=== PATIENT | female | born 1955 | race Caucasian/White ===

== ENCOUNTER 2017-04-27 15:48 | Outpatient (CLI) | payer OTHER ==
[~2017-04-27] VITALS: Ht 142.2 cm; Wt 45.0 kg
[2017-04-27 15:29] VITALS: BP 115/64; PULSE 105; RESP 18; Ht 142.2 cm; Wt 45.0 kg
[2017-04-27] MEDS ORDERED: SELE5TAB2 PO (15:51)
[2017-04-27] MEDS ORDERED: ENTA200T16 PO (15:51)
[2017-04-27] MEDS ORDERED: SIN50200 PO (15:51)
[2017-04-27] MEDS ORDERED: ROPI2TAB PO (15:51)
--- NOTE | 2017-04-27 16:03 | PN ---
Date/Time of Note Date/Time of Note DATE: 04/27/17 TIME: 15:56 Outpatient Progress Note Chief Complaint Sepsis/Parkinson/diabetes/hypertension/electrolyte imbalance HPI Sepsis/patient had sepsis, patient was recently hospitalized, patient was discharged on antibiotic, patient continued to have temperature up to 102+, patient was after the discharge was seen already in the hospital emergency room , patient had a CBC CMP, normal, Parkinson/patient has Parkinson disease, patient on medication, patient has more tremors when patient gets nervous, Diabetes no polydipsia polyuria hypoglycemia, blood sugar slightly elevated, Hypertension no headache or dizziness, no lightheadedness, no local focal weakness, Electrolyte imbalance patient has electrolyte been imbalance, patient was treated in the hospital, feeling better, no cramps, Review of Systems Const: Patient has fever, right now temperature 99.2, patient has temperature up to 102+, no chills, no Wt. loss, generalized fatigue, slightly poor appetite , no diaphoresis. Eyes: No pain, no discharge, no redness, no visual change, no foreign body. ENT: No pain, no bleeding, no congestion, no sore throat, no dysphagia, no discharge or rhinitis. Lymph: No adenopathy, no tender nodes, no lymphedema. Resp: No SOB, no cough, no sputum, no wheezing, no chest pain. CV: No chest pain, no palpitaions, no RIOS, no PND, no edema. GI: Normal appetite, no pain, no nausea, no vomiting, no diarrhea, no blood, no constipation. : No frequency, no urgency, no dysuria, no hematuria, no flank pain, no discharge, no bleeding. Musc: no back pain, no neck pain, no knee pain, no restricted ROM. Skin: No rash, no skin lesions, no erythema, no laceration, no bruising, no pruritus. Neuro: No JOHNSON, no dizziness, no syncope, no seizure, no focal-weakness. Feel generalized weakness, Endo: No polyuria, no polydypsia, no dry-skin, no temp-intolerance. Psych: No hallucinations, no depression, no anxiety, no suicidal ideation. Ext: No edema, no pain, no ulcer, no weakness. Physical Exam Vital Signs Date Time Temp Pulse Resp B/P Pulse Ox O2 Delivery O2 Flow Rate FiO2 04/27/17 15:29 99.3 105 18 115/64 100 Room Air General Appearance: A 62 year-old female who appears well-developed, well- nourished, in no acute distress. HEENT: Head normocephalic, atraumatic. Pupils equal, round, reactive to light and accommodate. Sclerae are no jaundice. Nasal turbinates pink without erythema or nasal discharge. Mucous membranes pink and moist without lesions. Oropharynx clear without any exudate or discharge. NECK: Supple. Trachea midline, No thyromegaly, No cervical lymphadenopathy, No mass, No carotid bruits, No JVD, Carotid pulses 2+ bilaterally. PULMONARY: Clear to auscultaion bilaterally, No retractions, Chest expansion symmetric bilaterally, no rales, no ronchi, no dulness on percussion. CARDIAC: Normal SI and S2, Regular rate and rythm, no murmur, gallop, or rub. GASTROINTESTINAL: Abdomen is soft, non-tender, Non Rigid, No distention, Positive bowel sounds x4 quadrants, Liver normal. SKIN: Warm, dry, no rash, no bruise, no echmosis. EXTREMITIES: Bilateral lower extremities normal, no edema, no phlabitus, pulse palpable, no contracture. MUSCULOSKELETAL: Spine Normal, Non-tender, Normal range of motion, No swelling, no deformity, no clubbing, or cyanosis, the patient has no edema to bilateral lower extremities, dorsalis pedis pulses palpable bilaterally. NEUROLOGIC: The patient is awake, alert, oriented, responding to yes/no questions appropriately, moving all extremities, cranial nerve intact, reduced strenght, and power, and coordination, unsteady patient gait needs maximum help, . PMH Sepsis/Parkinson/diabetes/hypertension/hyponatremia/gastroenteritis/hyperkalemia /renal insufficiency/ Social Hx No smoking no drinking, Family Hx Noncontributory Assessment/Plan Impression Sepsis/Parkinson/diabetes/hypertension/electrolyte imbalance Plan Patient has been admitted to the hospital with a sepsis, patient on antibiotic, patient still has antibiotic till tomorrow, patient still has a fever up to 102+ , and patient was already seen in emergency room after the discharge from the hospital, Patient encouraged to follow with the primary care physician, Patient CBC CMP from the hospital noted, Patient has generalized deconditioning, patient unable to stand by herself alone , needs maximum help, discussed with the family to increase activity slowly, fall precaution, We will ask if we can extend physical therapy and nursing visit with more, Patient very very high risk for repeated admission, patient also high risk for sepsis and sudden , Patient high risk for fall, I will see her within 1 week, patient family advised if they feel uncomfortable take her to the emergency room, Patient more likely will end up in the ER sooner than later, will monitor closely, will do lab next week, Medications Home Meds Reported Medications Selegiline Hcl* (Selegiline Hcl*) 5 Mg Tablet, 5 MG PO WITH BREAKFAST LUNCH, TAB 04/27/17 Ropinirole Hcl* (Requip XL*) 2 Mg Tab.sr.24h, 2 MG PO DAILY, TAB 04/27/17 Entacapone* (Comtan*) 200 Mg Tab, 200 MG PO QID, TAB 04/27/17 Carbidopa-Levodopa* (Sinemet CR*) 50-200 Mg Tabsr, 1 TAB PO QID, TAB 04/27/17 RAJ YOUNG MD Apr 27, 2017 16:03
== END 2017-04-27 16:22 | disposition home or self-care (01) ==
LOC: DCC 15:48
PROVIDERS: ATTEND Internal Medicine
DX: G20 Parkinson's disease (principal); I10 Essential (primary) hypertension; E87.5 Hyperkalemia; A41.9 Sepsis, unspecified organism; N28.9 Disorder of kidney and ureter, unspecified

== ENCOUNTER 2017-05-04 14:39 | Outpatient (CLI) | payer OTHER ==
[~2017-05-04] VITALS: Ht 142.2 cm; Wt 44.5 kg
[~2017-05-04 14:39] MED LIST: ENTA200T16 PO; ROPI2TAB PO; SELE5TAB2 PO; SIN50200 PO
[2017-05-04 14:46] VITALS: BP 106/60; PULSE 98; RESP 18; Ht 142.2 cm; Wt 44.5 kg
--- NOTE | 2017-05-04 15:46 | PN ---
Date/Time of Note Date/Time of Note DATE: 05/04/17 TIME: 15:41 Outpatient Progress Note Chief Complaint Sepsis/diabetes/hypertension/Parkinson HPI Sepsis/this patient was recently admitted with a sepsis,Patient with complete workup including LP, no source of infection, patient just completed antibiotic, Patient still has low-grade fever, no chills, patient still very weak and unsteady, Diabetes/patient denies any polydipsia polyuria hypoglycemia, Hypertension patient denies any headache or dizziness, patient feel generalized weakness and tiredness, Parkinson/no dysphagia, patient has tremors, no change in status, Review of Systems Const: Low-grade fever, no chills, no Wt. loss, generalized fatigue, normal appetite, no diaphoresis. Eyes: No pain, no discharge, no redness, no visual change, no foreign body. ENT: No pain, no bleeding, no congestion, no sore throat, no dysphagia, no discharge or rhinitis. Lymph: No adenopathy, no tender nodes, no lymphedema. Resp: No SOB, no cough, no sputum, no wheezing, no chest pain. CV: No chest pain, no palpitaions, no RIOS, no PND, no edema. GI: Normal appetite, no pain, no nausea, no vomiting, no diarrhea, no blood, no constipation. : No frequency, no urgency, no dysuria, no hematuria, no flank pain, no discharge, no bleeding. Musc: No bone/joint pain, no back pain, no neck pain, no knee pain, no restricted ROM. Skin: No rash, no skin lesions, no erythema, no laceration, no bruising, no pruritus. Neuro: No JOHNSON, no dizziness, no syncope, no seizure, no focal-weakness. Endo: No polyuria, no polydypsia, no dry-skin, no temp-intolerance. Psych: No hallucinations, no depression, no anxiety, no suicidal ideation. Ext: No edema, no pain, no ulcer, generalized no weakness. And unsteady gait, daughter has to hold onto her, Physical Exam Vital Signs Date Time Temp Pulse Resp B/P Pulse Ox O2 Delivery O2 Flow Rate FiO2 05/04/17 14:46 98.3 98 18 106/60 100 Room Air General Appearance: A 62 year-old female who appears well-developed, well- nourished, in no acute distress generalized weakness, and fatigue,. HEENT: Head normocephalic, atraumatic. Pupils equal, round, reactive to light and accommodate. Sclerae are no jaundice. Nasal turbinates pink without erythema or nasal discharge. Mucous membranes pink and moist without lesions. Oropharynx clear without any exudate or discharge. NECK: Supple. Trachea midline, No thyromegaly, No cervical lymphadenopathy, No mass, No carotid bruits, No JVD, Carotid pulses 2+ bilaterally. PULMONARY: Clear to auscultaion bilaterally, No retractions, Chest expansion symmetric bilaterally, no rales, no ronchi, no dulness on percussion. CARDIAC: Normal SI and S2, Regular rate and rythm, no murmur, gallop, or rub. GASTROINTESTINAL: Abdomen is soft, non-tender, Non Rigid, No distention, Positive bowel sounds x4 quadrants, Liver normal. SKIN: Warm, dry, no rash, no bruise, no echmosis. EXTREMITIES: Bilateral lower extremities normal, no edema, no phlabitus, pulse palpable, no contracture. MUSCULOSKELETAL: Spine Normal, Non-tender, Normal range of motion, No swelling, no deformity, no clubbing, or cyanosis, the patient has no edema to bilateral lower extremities, dorsalis pedis pulses palpable bilaterally. NEUROLOGIC: The patient is awake, alert, oriented, responding to yes/no questions appropriately, moving all extremities, cranial nerve intact, normal strenght, normal power, normal coordination, unsteady gait. PMH Sepsis/Parkinson/diabetes/hypertension/electrolyte imbalance Social Hx No change Family Hx No change Assessment/Plan Impression Sepsis improving Diabetes Hypertension Parkinson Plan Patient still feel weakness and tiredness, generalized, patient has temperature off and on up to 99 or 100, patient was advised to give Tylenol or Advil, and with that temperature comes down, Patient still feels weakness and tiredness, unsteady gait, fall precaution, Patient encouraged to follow with the primary care physician, We will repeat CBC and CMP, Discussed with the family, any high fever to take her to ER, Medications Home Meds Reported Medications Selegiline Hcl* (Selegiline Hcl*) 5 Mg Tablet, 5 MG PO WITH BREAKFAST LUNCH, TAB 04/27/17 Ropinirole Hcl* (Requip XL*) 2 Mg Tab.sr.24h, 2 MG PO DAILY, TAB 04/27/17 Entacapone* (Comtan*) 200 Mg Tab, 200 MG PO QID, TAB 04/27/17 Carbidopa-Levodopa* (Sinemet CR*) 50-200 Mg Tabsr, 1 TAB PO QID, TAB 04/27/17 RAJ YOUNG MD May 04, 2017 15:46
== END 2017-05-04 16:25 | disposition home or self-care (01) ==
LOC: DCC 14:39
PROVIDERS: ATTEND Internal Medicine
DX: A41.9 Sepsis, unspecified organism (principal); E11.9 Type 2 diabetes mellitus without complications; I10 Essential (primary) hypertension; G20 Parkinson's disease

== ENCOUNTER 2017-05-18 14:51 | Outpatient (CLI) | payer OTHER ==
[2017-05-18 15:03] VITALS: BP 128/74; PULSE 101; RESP 18
--- NOTE | 2017-05-18 15:42 | PN ---
Date/Time of Note Date/Time of Note DATE: 05/18/17 TIME: 15:37 Outpatient Progress Note Chief Complaint Parkinson/hypertension/diabetes HPI Parkinson/patient has severe uncontrollable movements, no difficulty in swallowing, no fall, patient was seen by a neurologist, patient to follow with the movement disorder physician at [facility], Hypertension/no headache or dizziness, no local focal weakness, Diabetes/no polydipsia polyuria hypoglycemia, Review of Systems Const: No Fever, no chills, no Wt. loss, no Fatigue, normal appetite, no diaphoresis. Eyes: No pain, no discharge, no redness, no visual change, no foreign body. ENT: No pain, no bleeding, no congestion, no sore throat, no dysphagia, no discharge or rhinitis. Lymph: No adenopathy, no tender nodes, no lymphedema. Resp: No SOB, no cough, no sputum, no wheezing, no chest pain. CV: No chest pain, no palpitaions, no RIOS, no PND, no edema. GI: Normal appetite, no pain, no nausea, no vomiting, no diarrhea, no blood, no constipation. : No frequency, no urgency, no dysuria, no hematuria, no flank pain, no discharge, no bleeding. Musc:, no back pain, no neck pain, no knee pain, no restricted ROM. Skin: No rash, no skin lesions, no erythema, no laceration, no bruising, no pruritus. Neuro: No JOHNSON, no dizziness, no syncope, no seizure, patient has uncontrollable movements of upper and lower extremity's, no dysphagia, no focal-weakness. Unable to walk, or stand, Endo: No polyuria, no polydypsia, no dry-skin, no temp-intolerance. Psych: No hallucinations, no depression, no anxiety, no suicidal ideation. Ext: No edema, no pain, no ulcer, no weakness. Physical Exam Vital Signs Date Time Temp Pulse Resp B/P Pulse Ox O2 Delivery O2 Flow Rate FiO2 05/18/17 15:03 98.7 101 18 128/74 96 Room Air General Appearance: A 62 year-ol female] who appears well-developed, well- nourished, in no acute distress. HEENT: Head normocephalic, atraumatic. Pupils equal, round, reactive to light and accommodate. Sclerae are no jaundice. Nasal turbinates pink without erythema or nasal discharge. Mucous membranes pink and moist without lesions. Oropharynx clear without any exudate or discharge. NECK: Supple. Trachea midline, No thyromegaly, No cervical lymphadenopathy, No mass, No carotid bruits, No JVD, Carotid pulses 2+ bilaterally. PULMONARY: Clear to auscultaion bilaterally, No retractions, Chest expansion symmetric bilaterally, no rales, no ronchi, no dulness on percussion. CARDIAC: Normal SI and S2, Regular rate and rythm, no murmur, gallop, or rub. GASTROINTESTINAL: Abdomen is soft, non-tender, Non Rigid, No distention, Positive bowel sounds x4 quadrants, Liver normal. SKIN: Warm, dry, no rash, no bruise, no echmosis. EXTREMITIES: Bilateral lower extremities, no edema, no phlabitus, pulse palpable , no contracture. Uncontrollable movement of upper and lower extremities, unable to walk, MUSCULOSKELETAL: Spine Normal, Non-tender, Normal range of motion, No swelling, no deformity, no clubbing, or cyanosis, the patient has no edema to bilateral lower extremities, dorsalis pedis pulses palpable bilaterally. NEUROLOGIC: The patient is awake, alert, oriented, responding to yes/no questions appropriately, moving all extremities, cranial nerve intact, reduced strenght, and power, very poor coordination, unable to test gait PMH No change Social Hx No change Family Hx No change Assessment/Plan Impression Parkinson/hypertension/diabetes Plan Patient was seen by neurologist, patient to follow with the movement disorder specialist, Patient encouraged to follow with the primary care physician, Patient had low-grade fever 1, 2 days ago, Patient CBC CMP noted, patient family given a copy for primary care physician, WBC is minimally elevated, will monitor for fever, if any fever family to call us or primary care physician, Medications Home Meds Reported Medications Selegiline Hcl* (Selegiline Hcl*) 5 Mg Tablet, 5 MG PO WITH BREAKFAST LUNCH, TAB 04/27/17 Ropinirole Hcl* (Requip XL*) 2 Mg Tab.sr.24h, 2 MG PO DAILY, TAB 04/27/17 Entacapone* (Comtan*) 200 Mg Tab, 200 MG PO QID, TAB 04/27/17 Carbidopa-Levodopa* (Sinemet CR*) 50-200 Mg Tabsr, 1 TAB PO QID, TAB 04/27/17 RAJ YOUNG MD May 18, 2017 15:42
== END 2017-05-18 16:37 | disposition home or self-care (01) ==
LOC: DCC 14:51
PROVIDERS: ATTEND Internal Medicine
DX: G20 Parkinson's disease (principal); I10 Essential (primary) hypertension; E11.9 Type 2 diabetes mellitus without complications